=== PATIENT | male | born 1945 | race Caucasian/White ===

== ENCOUNTER → 2023-07-01 14:24 | Outpatient (REF) | payer MEDICARE, SELFPAY | LOC: MRI 3T 14:24 | PROVIDERS: ATTENDING PHYSICIAN Specialist; FAMILY PHYSICIAN Family Medicine; REFERRING PHYSICIAN Radiology Diagnostic Radiology | DX: R97.20 Elevated prostate specific antigen [PSA] (principal); Z13.89 Encounter for screening for other disorder | CPT/HCPCS: 70030; 72197; A9575 ==

== ENCOUNTER → 2023-07-22 14:23 | Outpatient (REF) | payer MEDICARE, SELFPAY | LOC: CLAB 14:23 | PROVIDERS: ATTENDING PHYSICIAN Specialist | DX: R97.20 Elevated prostate specific antigen [PSA] (principal) | CPT/HCPCS: 88305 ==